=== PATIENT | male | born 1950 | race American Indian/Alaskan Native ===

== ENCOUNTER 2019-01-18 18:37 | Emergency (ER) | payer OTHER ==
[~2019-01-18] VITALS: Ht 177.8 cm; Wt 90.7 kg
[2019-01-18] MEDS ORDERED: KEFLEX500 MG PO (20:40)
== END 2019-01-18 22:13 | disposition home or self-care (01) ==
LOC: ED 18:37
DX: L03.116 Cellulitis of left lower limb (principal)
CPT/HCPCS: 80053; 85025; 93971; 96365; 96366; 96375; 99284-25; J1170; J2405; J3370; J7060

== ENCOUNTER 2019-01-22 15:08 | Emergency (ER) | payer OTHER ==
[~2019-01-22] VITALS: Ht 177.8 cm; Wt 90.7 kg
[~2019-01-22 15:08] MED LIST: KEFLEX500 MG PO
--- OUTSIDE RECORDS SUMMARY | 2019-01-22 15:10 | XMS ---
PreManage Notification: LIANET DELGADO Security Underwriting Director Events No recent Security Events currently on file CRITERIA MET - [facility] - 2 Visits in 30 Days CARE PROVIDERS There are no care providers on record at this time. Kevin has no Care Guidelines for this patient. Mireya VISIT COUNT (12 MO.) [address] [facility] TOTAL 2 NOTE: Visits indicate total known visits. ED/C VISIT TRACKING (12 MO.) 01/22/2019 15:[address] [facility] [place] TYPE: Emergency COMPLAINT: - LEG PAIN 01/18/2019 18:[address] [facility] [place] TYPE: Emergency COMPLAINT: - LEFT FOOT SWELLING NON INJURY DIAGNOSES: - Pain in left foot - Cellulitis of left lower limb INPATIENT VISIT TRACKING (12 MO.) No inpatient visits to display in this time frame [id number]
== END 2019-01-22 18:46 | disposition home or self-care (01) ==
LOC: ED 15:08
DX: L03.116 Cellulitis of left lower limb (principal)
CPT/HCPCS: 80053; 83605; 85025; 96365; 99283-25; J0696

== ENCOUNTER 2019-07-07 13:45 | Emergency (ER) | payer OTHER ==
[~2019-07-07] VITALS: Ht 177.8 cm; Wt 90.7 kg
[2019-07-07] MEDS ORDERED: PERCOCET 5-3251 EACH PO (14:52)
[2019-07-07] MEDS ORDERED: KEFLEX500 MG PO (14:52)
[2019-07-07] MEDS ORDERED: BACTRIM DS TAB1 EACH PO (14:52)
== END 2019-07-07 15:33 | disposition home or self-care (01) ==
LOC: ED 13:45
DX: L03.116 Cellulitis of left lower limb (principal); M70.52 Other bursitis of knee, left knee
CPT/HCPCS: 73560; 99283; A9270

== ENCOUNTER 2019-12-05 20:21 | Emergency (ER) | payer OTHER ==
[~2019-12-05] VITALS: Ht 177.8 cm; Wt 90.7 kg
--- OUTSIDE RECORDS SUMMARY | ~2019-12-05 | XMS | Encounter Summary ---
Demographics + + + | Address | [address] | | | [place] [address] | + + + | Home Phone | | + + + | Preferred Language | Unknown | + + + | Marital Status | Unknown | + + + | Yazidi Affiliation | Unknown | + + + | Race | Unknown | + + + | Ethnic Group | Unknown | + + + Author + + + | Author | [facility] | | | and Jovannyana | + + + | Organization | [facility] | | | and Jovannyana | + + + | Address | Unknown | + + + | Phone | Unavailable | + + + Support + + +---------+ + | Name | Relationship | Address | Phone | + + +---------+ + | Carlos Salgado | ECON | Unknown | | + + +---------+ + Care Team Providers + +------+ + | Care Customer Experience Analyst Name | Role | Phone | + +------+ + | Ramona Cano | PCP | | + +------+ + Reason for Visit + +--------+ + | Reason | Onset | Comments | | | Date | | + +--------+ + | Coordination Of Care | 03/11/ | | | | 2019 | | + +--------+ + Encounter Details +--------+ + + + + | Date | Type | Department | Care Team | Description | +--------+ + + + + | 03/11/ | Telephone | [facility] | Yaima Lam | Coordination Of Care | | 2019 | | INFECTIOUS DISEASE | Maryann Cosme MD | | | | | [address] | [address] | | | | | [place], [place] | [place] [address] | | | | | [address] | [phone] | | | | | [phone] | | | +--------+ + + + + Social History + +-------+ +--------+------+ | Tobacco Use | Types | Packs/Day | Years | Date | | | | | Used | | + +-------+ +--------+------+ | Never Assessed | | | | | + +-------+ +--------+------+ + + + | Sex Assigned at | Date Recorded | | | | + + + | Not on file | | + + + documented as of this encounter Miscellaneous Notes Telephone Encounter - Camille Godowin Market Superintendent - 03/11/2019 4:20 PM PDTFaxed order to valentino floyd, and informed patient to have lab done prior to next apt. Camille Goodwin. CMAEl ectronically signed by Camille Goodwin Market Superintendent at 03/11/2019 4:21 PM PDTTelephone E ncounter - Camille Goodwin Market Superintendent - 03/11/2019 4:20 PM PDT----- Message from Yaima Lam MD sent at 03/11/2019 15:06 PDT ----- Ma'am, sorry to bother, but was wondering if we could fax this lab order for patient to do before his next appointment. At your own convenience. Thanks. documented in this encounter Plan of Treatment Not on filedocumented as of this encounter Visit Diagnoses Not on filedocumented in this encounter"
--- OUTSIDE RECORDS SUMMARY | ~2019-12-05 | XMS | Encounter Summary ---
Demographics + + + | Address | [address] | | | [place] [address] | + + + | Home Phone | | + + + | Preferred Language | Unknown | + + + | Marital Status | Unknown | + + + | Roman Catholic Affiliation | Unknown | + + + | Race | Unknown | + + + | Ethnic Group | Unknown | + + + Author + + + | Author | [facility] | | | and Jovannyana | + + + | Organization | [facility] | | | and Jovannyana | [...] Team Providers + +------+ + | Care Php Lamp Developer Name | Role | Phone | + +------+ + | Ramona Cano | PCP | | + +------+ + Reason for Visit + +--------+ + | Reason | Onset | Comments | | | Date | | + +--------+ + | Coordination Of Care | 03/17/ | | | | 2018 | | + +--------+ + Encounter Details +--------+ + + + + | Date | Type | Department | Care Team | Description | +--------+ + + + + | 03/17/ | Telephone | [facility] | Savitalake powell, Coordination Of Care | | 2019 | | INFECTIOUS DISEASE | [address] | | | | | [address] | [address] | | | | | [place], [place] | [place] [address] | | | | | [address] | [phone] | | | | | [phone] | | | +--------+ + + + [...] this encounter Miscellaneous Notes Telephone Encounter - Dorene Tamayo RN - 03/17/2019 5:55 PM PDTNoted. Added to IV Antibiotics registry. Electronically signed by Dorene Tamayo RN at 2018 5:56 PM PDTTelephone Encounter - Camille Goodwin Radiologic Technology Teacher - 03/17/2019 5:10 P M PDTIV abx set up with Jimmy lezama. Rocephen and daptomycin 1 time daily. 7 days. Foll ow up with Dr. Ferreira in one week. Orders faxed to jimmy simms. Patient c onfirmed that they are scheduled for infusion. Camille Goodwin. CMA documented in this encounter Plan of Treatment Not on filedocumented as of this encounter Visit Diagnoses Not on filedocumented in this encounter"
--- OUTSIDE RECORDS SUMMARY | ~2019-12-05 | XMS | Encounter Summary ---
Demographics + + + | Address | [address] | | | [place] [address] | + + + | Home Phone [...] Author + + + | Author | [facility] | | | and Jovannyana | + + + | Organization | [facility] | | | and Jovannyana [...] Team Providers + +------+ + | Care Heat And Frost Insulator Helper Name | Role | Phone | + +------+ + | Ramona Cano | PCP | | + +------+ + Reason for Visit +---------+--------+ + | Reason | Onset | Comments | | | Date | | +---------+--------+ + | Results | 03/24/ | request lab results | | | 2019 | | +---------+--------+ + Encounter Details +--------+ + + + + | Date | Type | Department | Care Team | Description | +--------+ + + + + | 03/24/ | Telephone | [facility] | Jayneashkanyazmin Dorene | Results (request lab | | 2019 | | INFECTIOUS DISEASE | L RN | results) | | | | [address] | | | | | | [facility] [place] | | | | | | [address] | | | | | | [phone] | | | +--------+ + + + [...] Telephone Encounter - Dorene Tamayo RN - 03/24/2019 9:55 AM PDTWorking on IV antibio tics tracking: Called [facility], spoke to Doreen. Requested lab results be faxed to [facility]. Patient scheduled for ID follow up appt tomorrow [address] Ferreira at 1420. Doreen states patient has his last appt with them today 1 . [facility] given ID fax number to fax lab results. Electronically sign ed by Dorene Tamayo RN at 03/24/2019 10:02 AM PDTdocumented in this encounter Plan of Treatment Not on filedocumented as of this encounter Visit Diagnoses Not on filedocumented in this encounter"
--- OUTSIDE RECORDS SUMMARY | ~2019-12-05 | XMS | Encounter Summary ---
Demographics + + + | Address | [address] | | | [place] [address] | + + + | Home Phone | | + + + | Preferred Language | Unknown | + + + | Marital Status | Unknown | + + + | Latter-Day Affiliation | Unknown | + + + | Race | Unknown | + + + | Ethnic Group | Unknown | + + + Author + + + | Author | [facility] | | | and Jovannyana | + + + | Organization | [facility] | | [...] Team Providers + +------+ + | Care Laborer Cheesemaking Name | Role | Phone | + +------+ + | Ramona Cano | PCP | | + +------+ + Reason for Visit + + + | Reason | Comments | + + + | Follow-up | | + + + | Cellulitis | | + + + Evaluate & Treat (Routine) +--------+--------+ + + + + | Status | Reason | Specialty | Diagnoses / | Referred By | Referred To | | | | | Procedures | Contact | Contact | +--------+--------+ + + + + | Closed | | Infectious | Diagnoses | [facility] | | | | | Diseases | Cellulitis | [facility] | | | | | | [facility] | [facility] | | | | | | lesions | [facility] | | | | | | Procedures | [id number] | | | | | | [place] OFFICE | [address] | | | | | | OUTPATIENT | WAY | | | | | | [address] | [place], | | | | | | MINUTES | [place] | | | | | | | [address] | | | | | | | Phone: | | | | | | | [phone] | | | | | | | Fax: | | | | | | | [phone] | | +--------+--------+ + + + + Encounter Details +--------+---------+ + + + | Date | Type | Department | Care Team | Description | +--------+---------+ + + + | 03/25/ | Office | [facility] | Hanna Adhikari, | Cellulitis of right | | 2019 | Visit | INFECTIOUS DISEASE | Colin Nunes MD | lower extremity | | | | [address] | [address] | (Primary Dx); | | | | [place], [place] | [place] [address] | Cellulitis of left | | | | [address] | [phone] | lower extremity; | | | | [phone] | | Psoriasis; MRSA | | | | | | carrier | +--------+---------+ + + + Social History + +-------+ +--------+------+ | Tobacco Use | Types | Packs/Day | Years | Date | | | | | Used | | + +-------+ +--------+------+ | Never Smoker | | | | | + +-------+ +--------+------+ + +---+---+---+ | Smokeless Tobacco: | | | | | Never Used | | | | + +---+---+---+ + + +---------+ + | Alcohol Use | Drinks/Week | oz/Week | Comments | + + +---------+ + | Not Currently | | | | + + +---------+ + + + + | Sex Assigned at | Date Recorded | | | | + + + | Not on file | | + + + documented as of this encounter Last Filed Vital Signs + + + + + | Vital Sign | Reading | Time Taken | Comments | + + + + + | Blood Pressure | 127/72 | 03/25/2019 2:22 PM | | | | | PDT | | + + + + + | Pulse | 76 | 03/25/2019 2:22 PM | | | | | PDT | | + + + + + | Temperature | 36.6 C (97.8 F) | 03/25/2019 2:22 PM | | | | | PDT | | + + + + + | Respiratory Rate | 16 | 03/25/2019 2:22 PM | | | | | PDT | | + + + + + | Oxygen Saturation | 99% | 03/25/2019 2:22 PM | | | | | PDT | | + + + + + | Inhaled Oxygen | - | - | | | Concentration | | | | + + + + + | Weight | 90.3 kg (199 lb) | 03/25/2019 2:22 PM | | | | | PDT | | + + + + + | Height | 177.8 cm (5' 10") | 03/25/2019 2:22 PM | | | | | PDT | | + + + + + | Body Mass Index | 28.55 | 03/25/2019 2:22 PM | | | | | PDT | | + + + + + documented in this encounter Progress Notes Colin Doyle MD - 03/25/2019 2:[address] [facility] Service: Infectious Diseases Outpatient Follow Up Note CHIEF COMPLAINT Follow up on MRSA cellulitis HISTORY OF PRESENT ILLNESS The patient is a 68 y.o.-year-old male presenting today for follow up. History obtained from chart review and the patient. PMH of pustular psoriasis. Has been coming to ID clinic for MRSA infection. Pt failed kefle x/bactrim and was placed on 7 days of iv daptomycin on . He responded very well to therapy. States his cellulitis almost resolved and there are no more white heads. He also saw dermatology and started topical triamcinolone 2 days ago. PAST MEDICAL HISTORY There is no problem list on file for this patient. PAST SURGICAL HISTORY History reviewed. No pertinent surgical history. SOCIAL HISTORY Social History Socioeconomic History Marital status: Unknown Spouse name: Not on file Number of children: Not on file Years of education: Not on file Highest education level: Not on file Social Needs Financial resource strain: Not on file Food insecurity - worry: Not on file Food insecurity - inability: Not on file Transportation needs - medical: Not on file Transportation needs - non-medical: Not on file Occupational History Not on file Tobacco Use Smoking status: Never Smoker Smokeless tobacco: Never Used Substance and Sexual Activity Alcohol use: Not Currently Drug use: Never Sexual activity: Not on file Other Topics Concern Not on file Social History Narrative Not on file FAM. HISTORY History reviewed. No pertinent family history. MEDICATIONS: Reviewed with the patient today. Patient did not bring medication list or bottles to clinic today. Current Outpatient Medications: traMADol (ULTRAM) 50 mg tablet, Take 50 mg by mouth every 6 hours as needed., Disp: , Rfl: triamcinolone (KENALOG) 0.1% ointment, Apply topically as needed., Disp: , Rfl: No Known Allergies REVIEW OF SYSTEMS 12+ systems reviewed. Negative except as per HPI. PHYSICAL EXAM Vital Signs: BP 127/72 | Pulse 76 | Temp 36.6 C (97.8 F) (Tympanic) | Resp 16 | Ht 1.778 m (5' 1 0") | Wt 90.3 kg (199 lb) | SpO2 99% | BMI 28.55 kg/m General Appearance: Alert, cooperative, no distress. Head: Normocephalic, without obvious abnormality, atraumatic. Lips, mucosa, and tongue normal; dentition normal; no thrush present. Eyes: PERRL, conjunctiva/corneas clear, EOM's intact. Throat: Oropharynx without exudates. Neck: Supple, symmetrical, trachea midline, no adenopathy; thyroid: no enlargement/tenderness/nodules; no carotid bruit or JVD Back: Symmetric, no curvature, ROM normal, no CVA tenderness Lungs: Clear to auscultation bilaterally, respirations unlabored Chest Wall: No tenderness or deformity Heart: Regular rate. No murmurs. Abdomen: Soft, non-tender, bowel sounds active all four quadrants, no masses, no organomegaly Extremities: Extremities normal, atraumatic, no cyanosis or edema Pulses: 2+ and symmetric all extremities Skin: No areas or erythema. Postinflammatory hyperpigmentation seen in abdomen and lower ex tremities. No pustular lesions. Lymph nodes: Cervical, supraclavicular, and axillary nodes normal Neurologic: Alert, oriented, no focal deficits. Venous access: None REVIEW OF LABS: All labs were reviewed. No results found for this or any previous visit. No results found for any previous visit. CrCl cannot be calculated (No order found.). MICROBIOLOGY Microbiology Results (Last 14 Days by Collected Date with Culture/Sensitivity) No results found for the last 336 hours. IMAGING No new images for review today. ASSESSMENT AND RECOMMENDATIONS The patient is a 68 y.o.-year-old male with the following problems: Visit Diagnoses and Associated Orders: Haider was seen today for follow-up and cellulitis. Diagnoses and all orders for this visit: Cellulitis of right lower extremity Cellulitis of left lower extremity Psoriasis MRSA carrier Great response to 7 days of iv daptomycin for cellulitis. Continue management of underlying skin disorder, pustular psoriasis. Monitor for MRSA infection in the future. Counseling done on MRSA infection and prevention strategies. Side effects of medications, duration of therapy, prognosis and importance of adherence wer e discussed with the patient today. Follow up as needed. Time spent 25 min, 50% counseling re: MRSA infections. 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
--- OUTSIDE RECORDS SUMMARY | ~2019-12-05 | XMS | Clinical Summary ---
Demographics + + + | Address | [address] | | | [place] [address] | + + + | Home Phone | | + + + | Preferred Language | Unknown | + + + | Marital Status | Unknown | + + + | Tenriism Affiliation | Unknown | + + + | Race | Unknown | + + + | Ethnic Group | Unknown | + + + Author + + + | Author | [facility] | | | and Jovannyana | + + + | Organization | [facility] | | | and Jovannyana [...] Team Providers + +------+ + | Care Technical Designer Name | Role | Phone | + +------+ + | Ramona CanoP | PCP | | + +------+ + Allergies No Known Allergies Medications + + + +---------+------+------+-------+ | Medication | Sig | Dispensed | Refills | Star | End | Statu | | | | | | t | Date | s | | | | | | Date | | | + + + +---------+------+------+-------+ | traMADol (ULTRAM) | Take 50 mg by mouth | | 0 | | | Activ | | 50 mg tablet | every 6 hours as | | | | | e | | | needed. | | | | | | + + + +---------+------+------+-------+ | triamcinolone | Apply topically as | | 0 | | | Activ | | (KENALOG) 0.1% | needed. | | | | | e | | ointment | | | | | | | + + + +---------+------+------+-------+ Active Problems No known active problems Social History + +-------+ +--------+------+ | Tobacco [...] on file | | + + + Last Filed Vital Signs + + + [...] | | + + + + + Plan of Treatment + + + + + | Health Maintenance | Due Date | Last | Comments | | | | Done | | + + + + + | Hepatitis C | | | | | Screening | 2 | | | + + + + + | Colorectal Cancer | | | | | Screening | 2 | | | | (Colonoscopy) | | | | + + + + + | Vaccine: Zoster (1 | | | | | of 2) | 2 | | | + + + + + | Vaccine: | | | | | Pneumococcal 65+ (1 | 7 | | | | of 1 - PPSV23) | | | | + + + + + | Adult Annual | | | | | Wellness Visit | 9 | | | + + + + + | Vaccine: Influenza | | | | | (Season Ended) | 0 | | | + + + + + | Vaccine: | | 08/01/19 | | | Dtap/Tdap/Td (2 - | 8 | 18 | | | Td) | | | | + + + + + Results Not on filefrom Last 3 Months Insurance + +--------+ +--------+-------+---------+--------+ | Payer | Benefi | Subscriber | Effect | Phone | Address | Type | | | t Plan | ID | windy | | | | | | / | | Dates | | | | | | Group | | | | | | + +--------+ +--------+-------+---------+--------+ | [facility] | [employer] | [id number] | 03/31/ | | | Indemn | | SERVICE | YELLOW | | 2017-P | | | ity | | | [place] | | resent | | | | + +--------+ +--------+-------+---------+--------+ + +--------+ +--------+ + + | Guarantor Name | Accoun | Relation to | Date | Phone | Billing Address | | | t Type | Patient | of | | | | | | | | | | + +--------+ +--------+ + + | Haider Salgado | Person | Self [birth year] | [address] | | [place] | radha/Josias | | 1950 | [phone] | [place] [address] | | | jennifer | | | [address] (Home) | | + +--------+ +--------+ + + Advance Directives + + + + + | Type | Date Recorded | Patient | Explanation | | | | Cogeneration Technician | | + + + + + | Power of | | | | | Meat Manager | | | | + + + + + | Advance | | | | | Directive | | | | + + + + +
--- OUTSIDE RECORDS SUMMARY | ~2019-12-05 | XMS | Encounter Summary ---
Demographics + + + | Address | [address] | | | [place] [address] | + + + | Home Phone | | + + + | Preferred Language | Unknown | + + + | Marital Status | Unknown | + + + | Bahai Affiliation | Unknown | + + + | Race | Unknown | + + + | Ethnic Group | Unknown | + + + Author + + + | Author | [facility] | | | and Jovannyana | + + + | Organization | [facility] | | | and Jovannyana | [...] Team Providers + +------+ + | Care Diabetologist Name | Role | Phone | + +------+ + | Ramona Cano | PCP | | + +------+ + Reason for Visit + + + | Reason | Comments | + + + | Follow-up | Cellulitis | + + + Encounter Details +--------+---------+ + + + | Date | Type | Department | Care Team | Description | +--------+---------+ + + + | 03/17/ | Office | [facility] | [place], | Left leg cellulitis | | 2019 | Visit | INFECTIOUS DISEASE | [address] | (Primary Dx); Skin | | | | [address] | [address] | lesion | | | | [place], [place] | [place] [address] | | | | | [address] | [phone] | | | | | [phone] | | | +--------+---------+ + + + Social History [...] + + + | Blood Pressure | 119/66 | 03/17/2019 1:57 PM | | | | | PDT | | + + + + + | Pulse | 82 | 03/17/2019 1:57 PM | | | | | PDT | | + + + + + | Temperature | 36.3 C (97.4 F) | 03/17/2019 1:57 PM | | | | | PDT | | + + + + + | Respiratory Rate | 16 | 03/17/2019 1:57 PM | | | | | PDT | | + + + + + | Oxygen Saturation | 97% | 03/17/2019 1:57 PM | | | | | PDT | | + + + + + | Inhaled Oxygen | - | - | | | Concentration | | | | + + + + + | Weight | 88.9 kg (196 lb) | 03/17/2019 1:57 PM | | | | | PDT | | + + + + + | Height | - | - | | + + + + + | Body Mass Index | - | - | | + + + + + documented in this encounter Patient Instructions Patient Instructions Tennille King MD - 03/17/2019 2:00 PM PDT1. Trial of IV daptom ycin/ceftriaxone x 7 days 2. Lab work 3. Dermatology evaluation; skin biopsyElectronically signed by Tennille King MD at 2:21 PM PDT documented in this encounter Progress Notes Tennille King MD - 03/17/2019 2:00 PM PDT Subjective: Patient ID: Haider Slagado is a 68 y.o. male. HPI CC: Follow-up of left lower extremity cellulitis, MRSA infection Past medical history, medications, allergies, social and family histories are recorded in E [facility], reviewed and updated as necessary. The patient had been seen by Dr. Lam on 03/11. He has been scheduled to follow-up with me as Dr. Lam is out of the clinic. Background History (from Dr. 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 He is being referred to dermatology. He states that since December, he hirsch s had multiple purulent lesions in the abdomen, left upper thigh and right ankle. The drain age from the abdominal wall grew MRSA. He was prescribed Bactrim and Keflex and referred to infectious diseases. Unfortunately, patient lost his prescription and has only restarted h is medications since 3 days ago. He has no diabetes with an A1c of 5.4, HIV was recently ch ecked in January that was nonreactive. No hepatitis screening was done. He is a rather poor historian. He states that a few years ago he sustained a wound on his left lower extremity and from that time on has had recurrent cellulitis. This last flareup was about 2 weeks ago. Patient is a commercial leasing agent. He denies any other trauma to his skin. Physical Exam: Extremities: Abdominal wall with healed lesions; multiple pustular lesions in bilateral up per thigh; left lower extremity cellulitis with dried skin; right lower extremity plaque-lik e lesions and open ulcer on the right lateral ankle. Patient was advised to continue taking oral cephalexin and trimethoprim/sulfamethoxazole an d advised that if there is progression of cellulitis, that IV antibiotic treatment will be c onsidered. He had been referred to dermatology regarding biopsy for definitive diagnosis. Interim History: Patient denies fever, chills or sweats. He feels that his skin lesions have minimally improved with oral antibiotics. He has been taking trimethoprim/sulfamethoxazole and cephalexin since 03/09. He states that he last went fishing a week ago. He denies any other environmental or anima l exposure. He states that there had been some yellowish drainage from the lesions at the right leg and the left thigh. He is bothered more with itching rather than pain at the areas of the skin lesions. He denies new or diffuse arthralgias or myalgias. He has not noted any oral mucosal lesion s. He has an appointment with dermatology on 03/23. 03/23 - Dermatiology appointment Review of Systems All other systems reviewed and are negative, unless specified above Objective: Physical Exam Vital signs have been reviewed General: Pleasant, elderly male, not in acute physical distress. Accompanied by supportive spouse HEENT: Normocephalic. Anicteric sclera. No conjunctival lesions. No nasal mucosal lesion s. No sinus tenderness. No tragal tenderness. Moist oral mucosa with no oral thrush or ul cers. Supple neck with no cervical lymphadenopathy Lungs: No adventitious breath sounds Cardiovascular: Normal rate. Regular rhythm. No murmur or rubs Abdomen: Brownish discoloration at the site of previously described abdominal wall lesions. Positive bowel sounds. Soft. No tenderness, rebound or guarding Diffuse edema with circumferential erythema of the left leg with warmth. Left foot is also noted to be erythematous and slightly swollen. No open wounds noted. No vesicles or bullo us lesions noted. Erythematous plaques are noted at the right leg, right thigh and left thigh. Serous draina ge noted at the lesions from the right leg but no fluctuance is appreciated. Dry, scaly, slightly erythematous raised rash at patient's upper extremities Musculoskeletal: No inflamed-looking joints. No direct spine or paraspinal tenderness Neurologic: Oriented x3. Motor strength intact upper and lower extremities Psychiatric: Appropriate mood and affect Patient states that there had been several laboratory test done but he is not able to tell me exactly what they were and there are no results other than for viral hepatitis serologies currently available Hepatitis A IgM negative Hepatitis B anti-core IgM negative Hepatitis B surface antigen negative Assessment: 1. Left leg cellulitis DAPTOmycin (CUBICIN) IVPB 4 mg/kg = 400 mg cefTRIAXone (ROCEPHIN) IVPB (custom dose) 1 g CBC with Manual Differential Comprehensive Metabolic Panel Sedimentation Rate C-Reactive Protein CK Total Coccidioides Ab, Total, Serum, ID and CF Antistreptolysin O, Quant 2. Skin lesion Left lower extremity appearance suggestive of probable streptococcal erysipelas. The rest of the skin lesions, however are atypical. He has no systemic symptoms of infection at this time. Tests for acute hepatitis B and A are negative. Patient and his agreed to trial of IV antibiotics. Further work-up regarding etiology of patient's skin lesions ongoing. He had been referred to Dermatology and has initial nannette luation in [place] on 03/23. Plan: 1. Trial of IV daptomycin/ceftriaxone x 7 days through peripheral IV 2. Lab work as outlined above 3. Dermatology evaluation; skin biopsy 4. ID clinic follow-up in a week documented in this encounter Plan of Treatment + +------+--------+ + + | Name | Type | Priori | Associated Diagnoses | Order Schedule | | | | ty | | | + +------+--------+ + + | CBC with Manual | Lab | Routin | Left leg | Expected: | | Differential | | e | cellulitis | 03/17/2019, Expires: | | | | | | 03/17/2020 | + +------+--------+ + + | Comprehensive | Lab | Routin | Left leg | Expected: | | Metabolic Panel | | e | cellulitis | 03/17/2019, Expires: | | | | | | 03/17/2020 | + +------+--------+ + + | Sedimentation Rate | Lab | Routin | Left leg | Expected: | | | | e | cellulitis | 03/17/2019, Expires: | | | | | | 03/17/2020 | + +------+--------+ + + | C-Reactive Protein | Lab | Routin | Left leg | Expected: | | | | e | cellulitis | 03/17/2019, Expires: | | | | | | 03/17/2020 | + +------+--------+ + + | CK Total | Lab | Routin | Left leg | Expected: | | | | e | cellulitis | 03/17/2019, Expires: | | | | | | 03/17/2020 | + +------+--------+ + + | Coccidioides Ab, | Lab | Routin | Left leg | Expected: | | Total, Serum, ID and | | e | cellulitis | 03/17/2019, Expires: | | CF | | | | 03/17/2020 | + +------+--------+ + + | Antistreptolysin O, | Lab | Routin | Left leg | Expected: | | Quant | | e | cellulitis | 03/17/2019, Expires: | | | | | | 03/17/2020 | + +------+--------+ + + documented as of this encounter Visit Diagnoses + + | Diagnosis | + + | Left leg cellulitis - Primary Cellulitis and abscess of leg, except foot | + + | Skin lesion Unspecified disorder of skin and subcutaneous tissue | + + documented in this encounter"
--- OUTSIDE RECORDS SUMMARY | ~2019-12-05 | XMS | Encounter Summary ---
Demographics + + + | Address | [address] | | | [place] [address] | + + + | Home Phone | | + + + | Preferred Language | Unknown | + + + | Marital Status | Unknown | + + + | Church Affiliation | Unknown | + + + | Race | Unknown | + + + | Ethnic Group | Unknown | + + + Author + + + | Author | [facility] | | | and Jovannyana | + + + | Organization | [facility] | | | and Jovannyana [...] Team Providers + +------+ + | Care Crm Solution Architect Name | Role | Phone | + +------+ + | Ramona Cano | PCP | | + +------+ + Reason for Visit + + + | Reason | Comments | + + + | Establish Care | Cellulitis, staph infection | + + + Evaluate & Treat (Routine) +--------+--------+ + + + + | Status | Reason | Specialty | Diagnoses / | Referred By | Referred To | | | | | Procedures | Contact | Contact | +--------+--------+ + + + + | Closed | | Infectious | Diagnoses | Lorrie Cano | | | | Diseases | L03.90 | [place] | Infectious | | | | | (ICD-10-CM) | [address] | Disease [address] | | | | | - [address] | [address] | | | | | (ICD-9-CM) - | [place], | [place] | | | | | Cellulitis | [place] [address] | [address] | | | | | L08.9, | Phone: | Phone: | | | | | B95.8 | [phone] | [phone] | | | | | (ICD-10-CM) | Fax: | Fax: | | | | | - 686.9, | [phone] | [phone] | | | | | 041.10 | | | | | | | (ICD-9-CM) - | | | | | | | | | | | | | | Staphylococc | | | | | | | al | | | | | | | infection of | | | | | | | skin L40.1 | | | | | | | (ICD-10-CM) | | | | | | | - 696.1 | | | | | | | (ICD-9-CM) - | | | | | | | Pustular | | | | | | | psoriasis | | | | | | | Procedures | | | | | | | [place] OFFICE | | | | | | | OUTPATIENT | | | | | | | NEW 45 | | | | | | | MINUTES | | | +--------+--------+ + + + + Encounter Details +--------+---------+ + + + | Date | Type | Department | Care Team | Description | +--------+---------+ + + + | 03/11/ | Office | [facility] | Yaima Lam | Psoriasis (Primary | | 2019 | Visit | INFECTIOUS DISEASE | Maryann Cosme MD | Dx); Cellulitis of | | | | [address] | [address] | right lower | | | | [place], [place] | [place] [address] | extremity; | | | | [address] | [phone] | Cellulitis of left | | | | [phone] | | lower extremity | +--------+---------+ + + + Social History [...] + + + | Blood Pressure | 132/72 | 03/11/2019 10:09 AM | | | | | PDT | | + + + + + | Pulse | 77 | 03/11/2019 10:09 AM | | | | | PDT | | + + + + + | Temperature | 36.4 C (97.6 F) | 03/11/2019 10:09 AM | | | | | PDT | | + + + + + | Respiratory Rate | 16 | 03/11/2019 10:09 AM | | | | | PDT | | + + + + + | Oxygen Saturation | 99% | 03/11/2019 10:09 AM | | | | | PDT | | + + + + + | Inhaled Oxygen | - | - | | | Concentration | | | | + + + + + | Weight | 88.5 kg (195 lb) | 03/11/2019 10:09 AM | | | | | PDT | | + + + + + | Height | - | - | | + + + + + | Body Mass Index | - | - | | + + + + + documented in this encounter Patient Instructions Patient Instructions Yaima Lam MD - 03/11/2019 10:20 AM PDTWould recomme nd IV antibiotics for cellulitis Need to arrange with providers at [facility] keflex and bactrim for now Follow up in 1 week 11 :15 AM PDT documented in this encounter Progress Notes Yaima Lam MD - 03/11/2019 10:20 AM PDTFormatting of this note might be d ifferent from the original. [facility] Service: Infectious Diseases Outpatient Initial Consult Note Reason for Consult MRSA infection; LLE cellulitis CHIEF COMPLAINT LLE cellulitis HISTORY OF PRESENT ILLNESS The patient is a 68 y.o.-year-old male with significant PMH of pustular psoriasis per recor ds, although patient does not seem to know about this diagnosis. He is being referred to de rmatology. He states that since December, he has had multiple purulent lesions in the abdomen , left upper thigh and right ankle. The drainage from the abdominal wall grew MRSA. He was prescribed Bactrim and Keflex and referred to infectious diseases. Unfortunately, patient lost his prescription and has only restarted his medications since 3 days ago. He has no di abetes with an A1c of 5.4, HIV was recently checked in January that was nonreactive. No h epatitis screening was done. He is a rather poor historian. He states that a few years ago he sustained a wound on his left lower extremity and from that time on has had recurrent cellulitis. This last flareup was about 2 weeks ago. Patient is a commercial credit analyst. He denies any other trauma to his skin. Infectious Disease (ID) consult requested for further evaluation and management. PAST MEDICAL HISTORY No past medical history on file. No past surgical history on file. Social History Socioeconomic History Marital status: Unknown [...] Not on file Tobacco Use Smoking status: Not on file Substance and Sexual Activity Alcohol use: Not on file Drug use: Not on file Sexual activity: Not on file Other Topics Concern Not on file Social History Narrative Not on file No family history on file. Current Outpatient Medications Medication Sig Dispense Refill cephalexin (KEFLEX) 500 mg capsule Take 500 mg by mouth 4 times daily. sulfamethoxazole-trimethoprim (BACTRIM DS) 800-160 mg per tablet Take 1 tablet by mouth 2 times daily. traMADol (ULTRAM) 50 mg tablet Take 50 mg by mouth every 6 hours as needed. No current facility-administered medications for this visit. ALLERGIES Allergies no known allergies REVIEW OF SYSTEMS Neg except as noted above PHYSICAL EXAM Vital Signs: BP 132/72 | Pulse 77 | Temp 36.4 C (97.6 F) (Oral) | Resp 16 | Wt 88.5 kg (195 lb) | SpO2 99% General Appearance: Alert, cooperative, no distress Head: Normocephalic, without obvious abnormality, atraumatic. Lips, [...] Wall: No tenderness or deformity Heart: Regular rate and rhythm, S1 and S2 normal,no rub or gallop Abdomen: Soft, non-tender, bowel sounds active all four quadrants, no masses, no organomegaly Extremities: Abdominal wall with healed lesions; multiple pustular lesions in bilateral up per thigh; left lower extremity cellulitis with dried skin; right lower extremity plaque-lik e lesions and open ulcer on the right lateral ankle. Pulses: 2+ and symmetric all extremities Skin: Skin color, texture, turgor normal, no rashes or lesions Lymph nodes: Cervical, supraclavicular, and axillary nodes normal Neurologic: normal without focal findings and mental status, speech normal, alert and orien renato x3 REVIEW OF LABS: PROBLEM LIST Active Problems: * No active hospital problems. * ASSESSMENT AND RECOMMENDATIONS The patient is a 68 y.o.-year-old male with the following problems: Left lower extremity cellulitis MRSA infection of the abdominal wall Probable underlying psoriasis; HIV negative Recommendations: Patient only recently started antibiotics 3 days ago with Keflex and Bactrim. He has alrea nolvia seen some resolution of his lesions in the abdomen He may benefit from IV antibiotics if no further progression is noted At this point, we will follow-up in 1 week to see if further IV therapy is indicated Counseled patient to elevate legs and maintain good skin hygiene that moisturizing the dry areas He has a pending appointment with dermatology and would likely need biopsy for definitive d iagnosis. Hepatitis panel if not done yet Follow-up in 1 week Discussed treatment plan with patient. All questions and concerns addressed. Patient verbal ized understanding and agrees to proceed with the plan/s as outlined above. Thank you for allowing us to participate in this patient's care. A return visit has been re quested/scheduled in 1 week for routine clinical follow up. The patient was instructed to ca ll our clinic for any questions, and for any concerns regarding worsening symptoms, includin g fevers/chills/side effects from medication, especially diarrhea. We will see the patient s ooner than the recommended follow up date, if with any worsening of symptoms. Dictation software, [employer], used which may contain error for similar sounding words even af ter review. Personal communication requested for any clarification. Portions of this chart may have been copied from previous notes for continuity of care purp rosa Lam MD Infectious Diseases [facility] [address] [place] [id number] O: F: 03/11/2019 15:05 documente d in this encounter Plan of Treatment + +------+--------+ + + | Name | Type | Priori | Associated Diagnoses | Order Schedule | | | | ty | | | + +------+--------+ + + | Hepatitis Acute | Lab | Routin | Psoriasis | Expected: | | Panel, Reflex | | e | | 03/11/2019, Expires: | | Confirm | | | | 03/11/2020 | + +------+--------+ + + documented as of this encounter Visit Diagnoses + + | Diagnosis | + + | Psoriasis - Primary Other psoriasis | + + | Cellulitis of right lower extremity Cellulitis and abscess of leg, except foot | + + | Cellulitis of left lower extremity Cellulitis and abscess of leg, except foot | + + documented in this encounter"
[~2019-12-05 20:21] MED LIST changes: +BACTRIM DS TAB1 EACH PO; +PERCOCET 5-3251 EACH PO
[2019-12-05] MEDS ORDERED: KEFLEX500 MG PO (22:29)
== END 2019-12-05 22:53 | disposition home or self-care (01) ==
LOC: ED 20:21
DX: L03.116 Cellulitis of left lower limb (principal); F17.200 Nicotine dependence, unspecified, uncomplicated
CPT/HCPCS: 73610; 80053; 85025; 93971; 99284-25

== ENCOUNTER 2022-03-01 16:36 | Emergency (ER) | payer OTHER ==
[~2022-03-01] VITALS: Ht 177.8 cm; Wt 87.1 kg
[2022-03-01] MEDS ORDERED: LASIX20 MG PO (18:53)
[2022-03-01] MEDS ORDERED: KLOR-CON 1010 MEQ PO (18:53)
--- NOTE | 2022-03-02 14:29 | EKG ---
[facility] [address] [facility] [place] [address] Signed Normal sinus rhythm Rightward axis Nonspecific ST and T wave abnormality Prolonged QT Abnormal ECG No previous ECGs available Confirmed by MARVA JULIEN MD ([id number]) on 03/02/2022 2:29:21 PM Electronically Signed By: MARVA JULIEN MD 03/02/22 1429 PATIENT NAME: LIANET DELGADO Electrocardiogram DATE OF : 52 PHYSICIAN: MARVA JULIEN MD REPORT #: [id number] REPORT IS CONFIDENTIAL AND NOT TO BE RELEASED WITHOUT AUTHORIZATION
== END 2022-03-01 19:26 | disposition home or self-care (01) ==
LOC: ED 16:36
DX: I50.9 Heart failure, unspecified (principal); F17.200 Nicotine dependence, unspecified, uncomplicated
CPT/HCPCS: 36415; 71045; 83735; 83880; 84484; 93005; 93010; 96374; 99285-25; J1940